=== PATIENT | female | born 1995 | race Caucasian/White ===

== ENCOUNTER 2024-03-14 16:30 | Emergency (ER) | payer OTHER | END 2024-03-14 18:59 | disposition home or self-care (01) | LOC: JP.ED 16:30 | DX: S40.211A Abrasion of right shoulder, initial encounter (principal); V49.50XA Passenger injured in collision with unspecified motor vehicles in traffic accident, initial encounter | CPT/HCPCS: 73030-26-RT; 73030-RT; 99284 ==